=== PATIENT | male | born 1960 | race Two or more races ===

== ENCOUNTER → 2020-11-19 | Outpatient (CLI) | payer OTHER ==
--- NOTE | 2020-11-19 17:25 | RAD ---
EXAM: Lumbar spine, 3 views. HISTORY: Pain. COMPARISON: None. FINDINGS: 3 views of the lumbar spine are obtained. There is 3 mm grade 1 anterolisthesis of L4 on L5 with suspected pars interarticularis defects. There is 2 mm grade 1 anterolisthesis of L5 on S1 with suspected pars interarticularis defects. There is minimal multilevel endplate remodeling. There is f acet arthropathy at the mid lower lumbar levels. There is a small Schmorl's node within the anterior inferior endplate of L2. IMPRESSION: 1. Minimal grade 1 anterolisthesis with suspected pars defects at L4-L5 and L5-S1. 2. Degenerative change primarily at the lower lumbar levels. Electronically signed by: Ester Todd MD (11/19/2020 5:23 PM) [facility]
== END ==
LOC: RAD 08:44
PROVIDERS: ATTEND Family Medicine
DX: Z02.71 Encounter for disability determination (principal); M47.816 Spondylosis without myelopathy or radiculopathy, lumbar region; M43.17 Spondylolisthesis, lumbosacral region; M51.46 Schmorl's nodes, lumbar region
CPT/HCPCS: 72100